=== PATIENT | male | born 1955 | race Caucasian/White ===

== ENCOUNTER 2017-12-26 14:50 | Outpatient (CLI) | payer OTHER ==
--- NOTE | 2017-12-26 18:35 | RAD ---
CERVICAL SPINE THREE VIEWS: Date: 12-26-17 Comparison: None. History: Cervical radiculopathy, neck pain. FINDINGS: Neutral, flexion, and extension lateral radiographs of the cervical spine provided. The cervical spin e is not well assessed below the C6 level. Images portions of the cervical spine demonstrate no anter olisthesis or retrolisthesis. There is C4-5 disc space narrowing and anterior osteophyte formation. C 5-6 disc space narrowing and anterior osteophyte formation noted as well. IMPRESSION: Cervical spine degenerative changes at C4-5 and C5-6. No anterolisthesis of retrolisthesis. C6-7 and C7-T1 levels are not adequately assessed on this exam. POS: JOVANNI
== END 2017-12-26 14:51 | disposition home or self-care (01) ==
LOC: TBSIIMAG 14:50
PROVIDERS: ATTEND Surgery
DX: M47.22 Other spondylosis with radiculopathy, cervical region (principal)
CPT/HCPCS: 72040